=== PATIENT | female | born 1930 | race Hispanic/Latino ===

== ENCOUNTER 2017-08-05 12:04 | Outpatient (CLI) | payer MEDICARE ==
--- NOTE | 2017-08-05 12:52 | XRay Report ---
Right wrist 3 views: History: Wrist pain and swelling. 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 The radiocarpal joint appears unremarkable. No evidence of acute fracture. Impression: Findings as detailed above
== END 2017-08-05 12:05 | disposition home or self-care (01) ==
LOC: SPVIMAG 12:04
PROVIDERS: ATTEND Internal Medicine
DX: M18.9 Osteoarthritis of first carpometacarpal joint, unspecified (principal)